=== PATIENT | male | born 1945 | race Caucasian/White ===

== ENCOUNTER → 2016-09-16 | Outpatient (CLI) | payer OTHER ==
[~2016-09-16] MED LIST: CARV6.252 PO; CIPR-255 PO; CLC100 PO; CLOP1TAB15 PO; CRAN1CAP15 PO; DTR5 PO; LISI-461 PO; MECL1TAB42 PO; OXYC7.5T62 PO
--- NOTE | 2016-09-16 13:13 | DIAGNOSTIC IMAGING REPORT ---
WHOLE-BODY NUCLEAR BONE SCAN CLINICAL HISTORY: Prostate cancer. COMPARISON STUDY: No priors. TECHNIQUE: Three hours following the IV administration of 27.5 mCi of technetium 99m MDP, whole body nuclear bone scan was performed in the anterior and posterior projections. FINDINGS: There is no abnormal osseous tracer deposition identified typical in appearance for bony metastatic disease. Typically degenerative uptake is identified in the shoulders and knees. Mild degenerative activity is noted in the lumbar spine. There is expected excreted activity within the left renal collecting system and bladder. No tracer is identified within the right renal collecting system. IMPRESSION: 1. There is no abnormal tracer deposition identified typical appearance for bony metastatic disease. 2. There is no excreted tracer identified in the right renal collecting system. Clinical correlation will be required. Electronically signed by: Ramirez West M.D. 09/16/2016 1:11 PM Dictated Date/Time: 09/16/2016 1:09 PM
== END | disposition home or self-care (01) ==
LOC: C.NUCL 09:14
PROVIDERS: ATTEND Urology
DX: C61 Malignant neoplasm of prostate (principal)

== ENCOUNTER → 2016-10-03 | Outpatient (CLI) | payer OTHER | END | disposition home or self-care (01) | LOC: C.LABSPEC 11:01 | PROVIDERS: ATTEND Urology | DX: R97.20 Elevated prostate specific antigen [PSA] (principal); N40.2 Nodular prostate without lower urinary tract symptoms; C61 Malignant neoplasm of prostate ==

== ENCOUNTER 2016-12-01 05:15 | Inpatient (IN) | payer OTHER ==
[2016-11-09 13:35] VITALS: BMI 26.0
--- NOTE | 2016-11-09 14:11 | PAT Medication Instructions ---
Service Date Nov 09, 2016. Current Home Medication List Carvedilol (Coreg), 1 TAB PO BID Clopidogrel (Plavix), 75 MG PO QAM Cranberry-Vitamin C-Vitamin E (Cranberry), 1 CAP PO QAM Lisinopril (Zestril), 1 TAB PO QAM Meclizine Hcl (Meclizine Hcl), 1 TAB PO TID PRN for VERTIGO Medication Instructions For Your Scheduled Surgery Clopidogrel (Plavix), 75 MG PO QAM (hold 5 days prior to surgery per surgeon and PCP instructions) Meclizine Hcl (Meclizine Hcl), 1 TAB PO TID PRN for VERTIGO (not taking currently) - Hold the following medications 2 weeks prior to surgery: Cranberry-Vitamin C-Vitamin E (Cranberry), 1 CAP PO QAM - Hold the following medications the morning of surgery: Lisinopril (Zestril), 1 TAB PO QAM - Take the following medications the morning of surgery with a sip of water: Carvedilol (Coreg), 1 TAB PO BID - Take the following medications as scheduled the night before surgery: Carvedilol (Coreg), 1 TAB PO BID If you have any questions please call us at [phone] or [phone] ( [place]) or [phone]
--- NOTE | 2016-11-09 15:06 | DIAGNOSTIC IMAGING REPORT ---
TWO VIEW CHEST CLINICAL HISTORY: Preoperative examination. FINDINGS: PA and lateral chest radiographs are obtained. No prior studies are available for comparison at the time of dictation. The cardiomediastinal silhouette is unremarkable. There is mild atherosclerotic calcification of the thoracic aorta. There is elevation of right hemidiaphragm and minimal bibasilar atelectasis. The lungs and pleural spaces are otherwise clear. There is no pneumothorax. The skeletal structures are osteopenic. The bony thorax appears intact. IMPRESSION: No active disease in the chest. Electronically signed by: Ramirez West M.D. 11/09/2016 3:05 PM Dictated Date/Time: 11/09/2016 3:04 PM
[2016-11-09 15:10] LABS: URINE APPEARANCE CLEAR (CLEAR); URINE BILIRUBIN NEG (NEG); URINE COLOR YELLOW; URINE EPITHELIAL CELL AUTO 0-5 /lpf (0-5); URINE NITRITE NEG (NEG); URINE PH 5.5 (4.5-7.5); UROBILINOGEN NEG (NEG)
[2016-11-09 15:12] LABS: BASO % 0.7 %; BASO ABS # 0.04 K/uL (0-0.2); COMPLETE YES; EOS % 2.7 %; IG% 0.2 %; LYMPH % 18.5 %; LYMPH ABS # 1.03 K/uL (1.2-3.4); MANUAL MICROSCOPIC REQUIRED? NO; MEAN CELL VOLUME 84.8 fL (80-100); MEAN CORPUSCULAR HEMOGLOBIN 29.2 pg (25-34); MEAN CORPUSCULAR HGB CONC 34.5 g/dl (32-36); MEAN PLATELET VOLUME 10.3 fL (7.4-10.4); MONO % 8.1 %; NEUT % 69.8 %; PLATELET COUNT 237 K/uL (130-400); RED BLOOD COUNT 5.54 M/uL (4.7-6.1); REVIEW REQ? NO; WHITE BLOOD COUNT 5.56 K/uL (4.8-10.8)
[2016-11-09 15:35] LABS: BUN/CREATININE RATIO 15.4 (10-20); CALCIUM 8.7 mg/dl (8.5-10.1); CREATININE 1.3 mg/dl (0.60-1.40); POTASSIUM 4.7 mmol/L (3.5-5.1)
[2016-12-01] VITALS (11 sets, daily range): BP systolic 114–166; BP diastolic 70–96; PULSE 75–111; TEMP 36.2–36.4; O2SAT 91–96; Ht 180.3 cm; Wt 86.5 kg
[~2016-12-01] VITALS: Ht 180.3 cm; Wt 86.5 kg
[~2016-12-01 05:15] MED LIST changes: -CIPR-255 PO; -CLC100 PO; -DTR5 PO; -OXYC7.5T62 PO
[2016-12-01] MEDS ORDERED: LACTATED RINGER'S 1000ML 1,000 ML IV SCH ×2 (06:00)
[2016-12-01] MEDS ORDERED: HEPARIN SOD 5000 UNIT/0.5 ML CARP SQ SCH (06:00)
[2016-12-01] MEDS ORDERED: CEFAZOLIN 2000 MG/60 ML D5W IV SCH (06:00)
[2016-12-01] MEDS ORDERED: METHYLENE BLUE 0.5% 10 ML VIAL ONE (06:48)
[2016-12-01] MEDS ORDERED: BUPIVACAINE 0.5 % 5 MG/1 ML MPF 30ML VIAL ONE (06:48)
[2016-12-01] MEDS ORDERED: NEOSTIGMINE METHYLSULFATE 5 MG/5 ML SYR ONE (06:53)
[2016-12-01] MEDS ORDERED: GLYCOPYRROLATE INJ 0.2 MG/ML VIAL ONE (06:53)
[2016-12-01] MEDS ORDERED: LIDOCAINE HCL 2% 2 ML VIAL (20MG/ML) ONE (06:53)
[2016-12-01] MEDS ORDERED: PROPOFOL IV EMULSION 10 MG/ML 20 ML VIAL IV ONE (06:53)
[2016-12-01] MEDS ORDERED: ONDANSETRON INJ 2 MG/ML 2 ML VIAL ONE (06:53)
[2016-12-01] MEDS ORDERED: ROCURONIUM BROMIDE 10 MG/ML 5 ML VIAL ONE (06:53)
[2016-12-01] MEDS ORDERED: DEXAMETHASONE SOD INJ 4 MG/ML VIAL ONE (06:53)
[2016-12-01] MEDS ORDERED: MIDAZOLAM HCL 1 MG/ML 2ML VIAL ONE (06:54)
[2016-12-01] MEDS ORDERED: FENTANYL CITRATE INJ 50 MCG/1 ML 2 ML VIAL ONE (06:54)
--- NOTE | 2016-12-01 06:54 | History & Physical Bridge Note ---
H&P Re-Evaluation Bridge Note: I have examined the patient, reviewed the History & Physical and in the interval since the performance of the History & Physical I have noted the following changes of clinical significance: No changes noted
[2016-12-01] MEDS ORDERED: LABETALOL HCL IV 5 MG/ML 20ML IV PRN (07:45)
[2016-12-01] MEDS ORDERED: ONDANSETRON INJ 2 MG/ML 2 ML VIAL IV PRN (07:45)
[2016-12-01] MEDS ORDERED: ATROPINE SULFATE 0.1 MG/ML 5ML SYR IV PRN (07:45)
[2016-12-01] MEDS ORDERED: HYDROmorphone INJ 2 MG/ML SYR/VIAL IV PRN (07:45)
[2016-12-01] MEDS ORDERED: HYDROmorphone INJ 2 MG/ML SYR/VIAL ONE (08:17)
[2016-12-01] MEDS ORDERED: OXYBUTYNIN CHLORIDE 5 MG TAB PO PRN (11:15)
[2016-12-01] MEDS ORDERED: MECLIZINE HCL 25 MG TAB PO PRN (11:15)
[2016-12-01] MEDS ORDERED: KETOROLAC TROMETHAMINE 15 MG/ML VIAL IV PRN (11:15)
--- NOTE | 2016-12-01 11:40 | [facility] Post Operative Brief Note ---
Immediate Operative Summary Operative Date Dec 01, 2016. Pre-Operative Diagnosis cT2b [place] 4+3 Prostate Cancer Post-Operative Diagnosis Same as preop Procedure(s) Performed Robot Assisted Laparoscopic Radical Retropubic Prostatectomy, Removal of Pelvic Lymph Nodes, Lysis of Adhesions, Robot Assist; Suprapubic Tube Placement Surgeon Dr. Som Gruber Rn Ante Partum Surgeon(s) Jeni Ortiz NP Estimated Blood Loss 150 ml Findings LLQ bowel adhesions lysed, large seminal vesical nodule distorting bladder neck and prostate anatomy, watertight anastomosis. Specimens Frozen- 1. Bladder Neck Margin-left room at 0850, lab called back at 0910 Permanent A. Left Pelvic Lymph Node B. Periprostatic Fat C. Bladder Neck Margin D. Right Pelvic Lymph Node has Clip E. Prosate and Seminal Vesicles Drains #10 PAO LLQ, 18 fr silicone lara, 10 cc, 16 fr Rutner SPT, 5 cc Anesthesia GAET + local Complication(s) None Disposition Recovery Room / PACU
[2016-12-01 11:59] LABS: HEMATOCRIT 43.7 % (42-52); MEAN CELL VOLUME 86.4 fL (80-100); MEAN CORPUSCULAR HEMOGLOBIN 30.4 pg (25-34); MEAN PLATELET VOLUME 9.9 fL (7.4-10.4); PLATELET COUNT 189 K/uL (130-400); RED BLOOD COUNT 5.06 M/uL (4.7-6.1); WHITE BLOOD COUNT 9.85 K/uL (4.8-10.8)
[2016-12-01 12:02] LABS: MEAN CORPUSCULAR HGB CONC 35.2 g/dl (32-36)
[2016-12-01] MEDS: HYDROmorphone INJ 1 MG/ML SYR IV PRN ×4 (12:24→12:39)
[2016-12-01 12:30] LABS: BUN/CREATININE RATIO 12.3 (10-20); CALCIUM 7.9 mg/dl (8.5-10.1); CREATININE 1.4 mg/dl (0.60-1.40); POTASSIUM 4.2 mmol/L (3.5-5.1)
--- NOTE | 2016-12-01 13:06 | Anesthesiology Progress Note ---
Anesthesia Post Op Note Date & Time Dec 01, 2016 at 13:06 Vital Signs Pain Intensity: 2 Vital Signs Past 12 Hours Date Time Temp Pulse Resp B/P Pulse Ox O2 Delivery O2 Flow Rate FiO2 12/01/16 12:52 36.4 95 15 166/89 93 Nasal Cannula 3 12/01/16 12:50 166/89 12/01/16 12:46 89 15 12/01/16 12:46 90 15 94 12/01/16 12:45 163/91 12/01/16 12:41 95 14 93 12/01/16 12:41 95 14 12/01/16 12:40 155/81 12/01/16 12:36 74 13 93 12/01/16 12:36 75 13 12/01/16 12:35 160/81 12/01/16 12:31 84 19 95 12/01/16 12:31 83 19 12/01/16 12:30 159/96 12/01/16 12:26 70 14 12/01/16 12:26 70 14 95 12/01/16 12:25 159/85 12/01/16 12:21 81 16 94 12/01/16 12:21 81 16 12/01/16 12:20 159/85 12/01/16 12:16 79 16 12/01/16 12:16 78 16 95 12/01/16 12:15 172/91 12/01/16 12:12 84 17 12/01/16 12:12 84 17 94 12/01/16 12:10 170/97 12/01/16 12:07 70 15 94 12/01/16 12:07 71 15 12/01/16 12:06 80 17 12/01/16 12:06 81 17 94 12/01/16 12:05 170/92 12/01/16 12:01 86 16 95 12/01/16 12:01 86 16 12/01/16 12:00 85 21 170/93 95 12/01/16 12:00 86 21 12/01/16 11:56 168/91 12/01/16 11:55 85 20 12/01/16 11:55 85 20 92 12/01/16 11:50 88 15 97 12/01/16 11:50 88 15 12/01/16 11:45 93 18 12/01/16 11:45 92 18 162/94 96 12/01/16 11:40 83 16 155/96 98 12/01/16 11:40 83 16 12/01/16 11:35 94 17 171/96 97 12/01/16 11:35 94 17 12/01/16 11:30 88 18 12/01/16 11:30 84 18 129/81 97 12/01/16 11:25 36.4 87 16 152/92 97 Mask 10 12/01/16 11:25 89 20 152/92 97 12/01/16 11:25 88 20 12/01/16 05:45 36.4 75 16 148/93 94 Room Air Notes Mental Status: alert / awake / arousable, participated in evaluation Pt Amnestic to Procedure: Yes Nausea / Vomiting: adequately controlled Pain: adequately controlled Airway Patency, RR, SpO2: stable & adequate BP & HR: stable & adequate Hydration State: stable & adequate Anesthetic Complications: no major complications apparent
--- NOTE | 2016-12-01 13:33 | OPERATIVE REPORT ---
DATE OF OPERATION: 12/01/2016 PREOPERATIVE DIAGNOSIS: Clinical T2b, [place] 4+3 right-sided prostate cancer. POSTOPERATIVE DIAGNOSES: Same, intraabdominal adhesions, seminal vesicle nodule. PROCEDURES: Robot-assisted laparoscopic lysis of adhesions, robot-assisted laparoscopic radical retropubic prostatectomy and bilateral pelvic lymph node dissection. SURGEON: Dr. Som Gruber. CLINICAL BIOCHEMIST: TANJA Pearl. ANESTHESIA: General anesthesia with endotracheal intubation plus local at port sites. ESTIMATED BLOOD LOSS: 150 mL. IV FLUIDS: 2 liters of crystalloid. SPECIMENS SENT TO PATHOLOGY: Bladder neck margin for frozen section positive for apparent benign prostate glands, no malignancy, periprostatic fat, bladder neck margin for permanent section, prostate plus seminal vesicles, left and right pelvic lymph node packets. DRAINS LEFT IN PLACE: Include an 18-[place] silicone Yao catheter to gravity drainage with 10 mL of sterile water in the balloon, #10 PAO drain in left lower quadrant and a 16-[place] Rutner suprapubic tube with 5 mL of sterile water in the balloon. COMPLICATIONS: None. FINDINGS: Large solid nodule of the seminal vesicle distorting the bladder neck anatomy, watertight anastomosis, periprostatic bladder neck inflammation. BRIEF HISTORY: Mr. Wise is a 71-year-old male who I have seen as an outpatient for history of an elevated PSA and abnormal digital rectal exam. Prostate biopsy demonstrated a [place] 4+3 adenocarcinoma on the side of his nodule. Please see H\T\P for further details. After discussion of risks and benefits of various forms of intervention, he has decided upon robotic prostatectomy to manage his disease. Wide dissection on the right hand side is planned. Intravenous antibiotics provided for coverage and subcutaneous heparin and SCDs used for DVT prophylaxis. PROCEDURE IN DETAIL: The patient was properly identified and brought to the operative suite after identification of appropriate consent on the chart. General anesthesia with endotracheal intubation was initiated and the patient was prepped and draped in standard fashion for this procedure. part time flexible clerk-out procedure was followed. All port sites were anesthetized with local prior to incision. Supraumbilical incision was made, approximately 12 mm in length and using a visual obturator, abdomen was directly entered using a laparoscope. Abdomen was insufflated to 15 mmHg and ports were placed for robotic fourth arm template. On the left hand side, adhesions between the bowel omentum and the anterior abdominal wall were appreciated. Using cold scissors, these were lysed until the pelvis was easily accessible. Two left-sided 7 mm robotic ports were placed, 1 right-sided 7 mm robotic port and a 5-12 mm family readiness support assistant port. The patient was placed in Trendelenburg and robot was brought in and docked prior to lysis of adhesions as noted above. The bladder was dropped down to the level of the pubic bone and prostate was defatted. A relative paucity of intraabdominal fat was appreciated. Over the course of the lateral bladder dissection, the left-sided external iliac vessels were noted to be well exposed with the lymph node packet essentially peeled off of the vessels. Clips and cautery were used as necessary to control small vessels of lymphatic and the lymph node packet on this side was removed from the abdomen and sent for pathologic analysis. Attention was turned to the pelvis where the prostate was defatted. Periprostatic fat was sent for separate pathologic analysis. Endopelvic fascia was sharply entered and dissection was carried down to the level of the apex of the prostate gland. A thickened dilated dorsal venous complex was noted. This was controlled using a 0 Vicryl suture on a CT1 needle in a [id number] fashion but due to its width, the suture was noted to have some slack. On the left hand side, as previously planned, a nerve-sparing dissection was carried out. On the right hand side, dissection was planned further from the level of the prostate. Bladder neck was placed on traction using a 30-degree down lens, the bladder neck was divided down to the level of the Yao catheter. At this level, a significant amount of bladder inflammation was appreciated down to the level of the Yao. Posterior bladder neck was noted to be inflamed and somewhat abnormal appearing in its nature. Due to concern over the possibility of cancerous involvement, frozen section from the posterior bladder lip was sent and felt to be positive for benign glands per the pathology report. Bladder was dropped in the midline and a cystic structure was encountered immediately posterior to the bladder neck. Rectum was insufflated and this was noted to demonstrate no bubbles and therefore not felt to be consistent with a GI injury. This was felt to possibly represent a prostatic cyst at first, based on previous CT scan imaging. Plane of dissection was taken lateral to the midline with the pedicles being controlled on the left hand side with cold Weck clips and scissors and on the right hand side with a vessel sealer. After the dissection was carried out, the [place] fascia was noted distally to the level of dissection. Seeing that the seminal vesicles and vas had not been encountered, attention was again turned to the structures of the bladder neck. On dissecting the cystic structure little further, it was appreciated that this was a seminal vesicle which had been folded underneath the bladder neck margin, distorting both its anatomy and the anatomy of the prostate gland, somewhat unusual in this location. This was dissected free and noted to be grossly dilated with a large solid nodule present within the seminal vesicles. This was felt to likely represent the patient's palpable area on previous digital rectal exam. Once the seminal vesicles were able to be identified and dissected free, the vas was noted to be tented underneath the seminal vesicles. These were divided and the posterior plane was identified in a more normal appearing fashion. Cold scissors were used to drop the rectum up to level of the apex of the prostate. Remaining nerve sparing dissection was carried out on the left hand side and the prostate was freed on the right hand side. Rectourethralis fibers were divided. Attention was turned to the dorsal vein which was divided with release of the previous controlling suture. After the urethra was skeletonized and the apex of the prostate defined, a [id number] suture was repeated into the dorsal venous complex with excellent hemostasis. Urethra was divided with an excellent urethral stump. Rectourethralis fibers were also divided and the prostate was removed from the pelvis to be placed within an EndoCatch bag for retrieval at the end of the case. Attention was turned to the pelvis for any small bleeding vessels which were controlled as necessary using judicious cautery. Otherwise, excellent hemostasis was appreciated. Rectum was insufflated under saline irrigation and noted to be free of injury. The bladder neck was carefully inspected per the previous positive margin and some excess tissue in the posterior aspect was dissected free. However, close inspection of the bladder neck did not identify any further residual prostate tissue at this level. The tissue removed was sent as a permanent bladder neck margin. Methylene blue had been provided. Ureteral orifices were noted to be well removed from the plane of dissection. Pelvic lymph node dissection was carried out on the right hand side using cautery and clips as necessary to control small lymphatics. This was labeled with a clip for identification after removal from the patient. The patient's obturator nerves were noted to be in close proximity to the external iliac vessels without significant redundant lymphatic tissue apparent in the obturator fossa. The majority of the dissection therefore consisted of the tissue overlying the external iliac vessels on both sides. No additional tissue was identified for resection on the left hand side after initial removal. Attention was then turned to the pelvis where again excellent hemostasis was appreciated. Using a circumferential running anastomosis, the bladder neck and urethra were brought together with a double armed V-Loc suture. Good mucosal coaptation was appreciated. Bladder neck had been relaxed previously to allow for visualization of the structures within the bladder and ensure lack of a median lobe but bladder neck reconstruction was not required due to the brawny nature of the tissue and a small bladder neck aperture. After completion of closure, the 18-[place] silicone catheter was visualized entering the bladder prior to completion of the anastomosis. Bladder was irrigated with greater than 120 mL and the anastomosis was noted to be watertight. The bladder was left distended and a small suprapubic incision was made. 16-[place] Rutner was passed via the lower abdominal wall and visualized entering the abdominal cavity. Bladder was stabilized and the Rutner was placed into the anterior dome of the bladder with return of pink tinged irrigant. Five mL of sterile water were placed in the balloon and this was appreciated to be in good location with free drainage. [place] were removed with correct needle and instrument count. The fourth arm was removed and a PAO drain was brought in via the fourth arm port. This was placed within the confines of the pelvis while avoiding placing it directly over the anastomosis. Robotic instruments were removed and camera was brought in via the family readiness support assistant port. String to the EndoCatch bag was brought out through the supraumbilical incision. Ports were removed and excess carbon dioxide gas was removed from the abdominal cavity. Supraumbilical port was enlarged sufficiently to allow for easy removal of the specimen. This was then closed with a running 0 Vicryl suture on a UR-5 needle. A 2-0 silk was used to secure the suprapubic tube and the PAO drain in place. Skin was closed using 4-0 Monocryl and Dermabond dressings. Anesthesia was reversed. The patient was transferred to recovery room in stable condition. FOLLOWUP CARE: The patient will be admitted to the floor for standard postoperative management. We will plan on removing the urethral Yao tomorrow, send the patient home with a suprapubic tube should this be functioning well. I attest to the content of the Intraoperative Record and any orders documented therein. Any exceptio ns are noted below.
[2016-12-01] MEDS: LACTATED RINGER'S 1000ML 1,000 ML IV SCH ×2 (14:23→20:44)
[2016-12-01 14:59] LABS: PROTHROMBIN TIME (PATIENT) 10.2 SECONDS (9.0-12.0)
[2016-12-01] MEDS: ONDANSETRON INJ 2 MG/ML 2 ML VIAL IV PRN (15:50)
[2016-12-01] MEDS: CEFAZOLIN IV 1,000 MG in DEXTROSE 5% 50ML 50 ML IV SCH (15:50)
[2016-12-01] MEDS: LISINOPRIL 10 MG TAB PO SCH (16:03)
[2016-12-01] MEDS: ACETAMINOPHEN 500 MG TAB PO SCH (18:00)
[2016-12-01] MEDS: CARVEDILOL 6.25 MG TAB PO SCH (20:44)
[2016-12-01] MEDS: DOCUSATE SODIUM 100 MG CAP PO SCH (20:45)
[2016-12-01] MEDS: HEPARIN SOD 5000 UNIT/0.5 ML CARP SQ SCH (20:47)
[2016-12-02] VITALS (7 sets, daily range): BP systolic 121–147; BP diastolic 72–80; PULSE 74–94; TEMP 36.3–36.8; O2SAT 92–94
[2016-12-02] MEDS: CEFAZOLIN IV 1,000 MG in DEXTROSE 5% 50ML 50 ML IV SCH ×2 (00:09→09:51)
[2016-12-02] MEDS: LACTATED RINGER'S 1000ML 1,000 ML IV SCH (05:28)
[2016-12-02] MEDS: ACETAMINOPHEN 500 MG TAB PO SCH ×3 (05:35→10:47)
[2016-12-02 07:33] LABS: BASO % 0.1 %; BASO ABS # 0.01 K/uL (0-0.2); COMPLETE YES; EOS % 0.1 %; HEMATOCRIT 39.5 % (42-52); IG% 0.3 %; LYMPH % 10.4 %; LYMPH ABS # 0.91 K/uL (1.2-3.4); MEAN CELL VOLUME 85.9 fL (80-100); MEAN CORPUSCULAR HEMOGLOBIN 29.8 pg (25-34); MEAN CORPUSCULAR HGB CONC 34.7 g/dl (32-36); MEAN PLATELET VOLUME 10.1 fL (7.4-10.4); MONO % 9.2 %; NEUT % 79.9 %; PLATELET COUNT 188 K/uL (130-400); WHITE BLOOD COUNT 8.77 K/uL (4.8-10.8)
--- NOTE | 2016-12-02 07:34 | Progress Note ---
Subjective Date of Service: Dec 02, 2016. Subjective Pt evaluation today including: conversation w/ patient, physical exam, chart review, lab review, review of inpatient medication list Pain: Lower abdominal, controlled PO Intake: Valeria clears, + appetite Voiding: lara catheter in place (SPT and lara draining well, urine clear) 71 yo male POD#1 s/p RALRP, BPLND. He was OOBTC last PM, valeria clears well. He notes some SP discomfort, valeria clears, no f/c/n/v. Minimal PAO output, urine clear , SPT > lara. Overall feeling improved from PM rounds yesterday. Review of Systems Constitutional: No chills, No fever Eyes: No worsening of vision ENT: No hearing loss Respiratory: No shortness of breath, No sputum Cardiac: No chest pain Abdomen: + pain (mild), No diarrhea, No nausea, No vomiting Male : + see HPI Neurologic: No memory loss, No paralysis Psychiatric: No depression symptoms Skin: No new/changing skin lesions Objective Vital Signs Date Time Temp Pulse Resp B/P Pulse Ox O2 Delivery O2 Flow Rate FiO2 12/02/16 04:00 36.4 89 18 136/77 93 Room Air 12/02/16 00:14 Room Air 12/01/16 23:31 36.3 92 18 114/70 91 Room Air 12/01/16 19:45 93 Nasal Cannula 3.0 12/01/16 19:41 36.4 111 18 147/89 93 Room Air 12/01/16 16:50 36.4 102 18 145/88 95 Room Air 12/01/16 16:07 Nasal Cannula 3.0 12/01/16 15:38 36.4 95 18 158/93 96 Nasal Cannula 2.0 12/01/16 14:38 86 16 164/93 95 12/01/16 14:11 Nasal Cannula 3.0 12/01/16 14:10 95 16 166/96 95 12/01/16 14:07 36.2 94 16 153/87 94 Nasal Cannula 3.0 12/01/16 14:04 94 Nasal Cannula 3.0 12/01/16 12:52 36.4 95 15 166/89 93 Nasal Cannula 3 12/01/16 12:50 166/89 12/01/16 12:46 89 15 12/01/16 12:46 90 15 94 12/01/16 12:45 163/91 12/01/16 12:41 95 14 93 12/01/16 12:41 95 14 12/01/16 12:40 155/81 12/01/16 12:36 74 13 93 12/01/16 12:36 75 13 12/01/16 12:35 160/81 12/01/16 12:31 84 19 95 12/01/16 12:31 83 19 12/01/16 12:30 159/96 12/01/16 12:26 70 14 12/01/16 12:26 70 14 95 12/01/16 12:25 159/85 12/01/16 12:21 81 16 94 12/01/16 12:21 81 16 12/01/16 12:20 159/85 12/01/16 12:16 79 16 12/01/16 12:16 78 16 95 12/01/16 12:15 172/91 12/01/16 12:12 84 17 12/01/16 12:12 84 17 94 12/01/16 12:10 170/97 12/01/16 12:07 70 15 94 12/01/16 12:07 71 15 12/01/16 12:06 80 17 12/01/16 12:06 81 17 94 12/01/16 12:05 170/92 12/01/16 12:01 86 16 95 12/01/16 12:01 86 16 12/01/16 12:00 85 21 170/93 95 12/01/16 12:00 86 21 12/01/16 11:56 168/91 12/01/16 11:55 85 20 12/01/16 11:55 85 20 92 12/01/16 11:50 88 15 97 12/01/16 11:50 88 15 12/01/16 11:45 93 18 12/01/16 11:45 92 18 162/94 96 12/01/16 11:40 83 16 155/96 98 12/01/16 11:40 83 16 12/01/16 11:35 94 17 171/96 97 12/01/16 11:35 94 17 12/01/16 11:30 88 18 12/01/16 11:30 84 18 129/81 97 12/01/16 11:25 36.4 87 16 152/92 97 Mask 10 12/01/16 11:25 89 20 152/92 97 12/01/16 11:25 88 20 Physical Exam General Appearance: WD/WN, no apparent distress ENT: hearing grossly normal Neck: supple, no adenopathy Respiratory/Chest: no respiratory distress, no accessory muscle use Cardiovascular: no JVD Abdomen: non tender, soft, + pertinent finding (nondistended, inc c/d/i) Extremities: non-tender Neurologic/Psychiatric: alert Skin: normal color Laboratory Results Last 24 Hours Test 12/01/16 11:52 12/01/16 14:35 12/02/16 07:12 White Blood Count 9.85 K/uL Red Blood Count 5.06 M/uL Hemoglobin 15.4 g/dL Hematocrit 43.7 % Mean Corpuscular Volume 86.4 fL Mean Corpuscular Hemoglobin 30.4 pg Mean Corpuscular Hemoglobin Concent 35.2 g/dl RDW Standard Deviation 41.2 fL RDW Coefficient of Variation 13.0 % Platelet Count 189 K/uL Mean Platelet Volume 9.9 fL Sodium Level 142 mmol/L Potassium Level 4.2 mmol/L Chloride Level 107 mmol/L Carbon Dioxide Level 28 mmol/L Anion Gap 7.0 mmol/L Blood Urea Nitrogen 17 mg/dl Creatinine 1.40 mg/dl Est Creatinine Clear Calc Drug Dose 51.5 ml/min Estimated GFR () 58.2 Estimated GFR (Non- 50.2 BUN/Creatinine Ratio 12.3 Random Glucose 166 mg/dl Calcium Level 7.9 mg/dl Prothrombin Time 10.2 SECONDS Prothromb Time International Ratio 1.0 Activated Partial Thromboplast Time 25.9 SECONDS Partial Thromboplastin Ratio 1.0 Assessment and Plan A/P 71 yo male POD#1 s/p RALRP, BPLND, doing well. Advance diet and activity today. Anticipate DC PAO and DC home later today. After ambulation patient will choose if he wishes to go home with lara or SPT, we will DC other catheter. Will recheck later today.
[2016-12-02] MEDS: OXYCODONE/ACETAMINOPHEN 7.5-325 TAB PO PRN ×2 (07:36→13:58)
[2016-12-02 08:06] LABS: CALCIUM 7.8 mg/dl (8.5-10.1); CREATININE 1.3 mg/dl (0.60-1.40); POTASSIUM 3.8 mmol/L (3.5-5.1)
[2016-12-02] MEDS ORDERED: CLC100 PO (09:27)
[2016-12-02] MEDS ORDERED: DTR5 PO (09:27)
[2016-12-02] MEDS ORDERED: CIPR-255 PO (09:27)
[2016-12-02] MEDS ORDERED: OXYC7.5T62 PO (09:27)
--- NOTE | 2016-12-02 09:29 | Discharge Instructions ---
Discharge Instructions Date of Service Dec 02, 2016. Admission Reason for Admission: Prostate Cancer Discharge Discharge Diagnosis / Problem: Prostate Cancer Discharge Goals Goal(s): Improve function, Prevent Disease Progression Activity Recommendations Activity Limitations: per Instructions/Follow-up section . Instructions / Follow-Up Instructions / Follow-Up 1. Do not lift >15lbs x 6 weeks. 2. No heavy exercise x 6 weeks. You may engage in light activity such as walking and stairs as tolerated. 3. No sexual intercourse until cleared by Dr. Gruber or Dr. Nathan. 4. Do not drive x [address] while taking narcotics. 5. Finish all of the antibiotic you have been prescribed. 6. Immediately call our office at [phone] if your catheter is removed for any reason. 7. Follow-up as scheduled. Please call our office at [phone] if you need to reschedule for any reason. . Current Hospital Diet Hospital Diet(s): Regular Diet Discharge Diet Recommended Diet: Regular Diet Procedures Procedures Performed: Robot Assisted Laparoscopic Radical Retropubic Prostatectomy, Removal of Pelvic Lymph Nodes, Lysis of Adhesions, Robot Assist; Suprapubic Tube Placement Pending Studies Studies pending at discharge: no Medical Emergencies . Who to Call and When: Medical Emergencies: If at any time you feel your situation is an emergency, please call 911 immediately. . Non-Emergent Contact Non-Emergency issues call your: Primary Care Provider, Urologist Call Non-Emergent contact if: temperature is above 101.5 . . "Provider Documentation" section prepared by Valarie Salinas. VTE Core Measure Inpt VTE Proph given/why not?: Unfractionated heparin SQ, SCD's [place] Drug Monitoring Program Search Results: patient reviewed within database
[2016-12-02] MEDS: DOCUSATE SODIUM 100 MG CAP PO SCH (09:51)
[2016-12-02] MEDS: LISINOPRIL 10 MG TAB PO SCH (09:52)
[2016-12-02] MEDS: CARVEDILOL 6.25 MG TAB PO SCH (09:52)
[2016-12-02] MEDS: HEPARIN SOD 5000 UNIT/0.5 ML CARP SQ SCH (09:55)
[2016-12-02] MEDS: ONDANSETRON INJ 2 MG/ML 2 ML VIAL IV PRN (10:43)
--- NOTE | 2016-12-13 13:41 | DISCHARGE SUMMARY ---
ADMITTING DIAGNOSIS: Prostate cancer. DISCHARGE DIAGNOSIS: Same. ADMITTING ATTENDING: Dr. Som Gruber. PROCEDURES OVER THE COURSE OF ADMISSION: Include a robotic prostatectomy with pelvic lymph node dissection on 12/01/2016. COMPLICATIONS: None. BRIEF HISTORY: Mr. Wise is a pleasant 71-year-old male who has been diagnosed with clinical T2b [place] 4+3 prostate cancer, for which he has chosen a radical prostatectomy to manage his disease with robot assistance. Please see H\T\P for further details. He is being admitted for this purpose. HOSPITAL COURSE: The patient was admitted after uncomplicated robotic prostatectomy on 12/01/2016. Please see operative report for further details. Suprapubic tube was left in place. The patient's postoperative course was uneventful with diet and activity being rapidly advanced. By postoperative day #1, the patient was ambulating in the hallways, tolerating a regular diet and comfortable on oral pain medication. He chose to have his SP tube remain in place and therefore his Yao was removed, as was his PAO drain. Please see progress notes for further details. DISCHARGE INSTRUCTIONS: Please see discharge instruction sheet and medication list for further details. The patient's postoperative appointment for his trial of void is confirmed. The patient is instructed to contact us should he note any fevers, chills, nausea, vomiting or other significant difficulties in the postoperative period. Postoperative prescriptions provided.
== END 2016-12-02 16:52 | disposition home or self-care (01) | DRG 707 ==
LOC: ENRESERVTM → ENRESERVDT → C.ACU 05:15 → C.MSW 11:21
PROVIDERS: ADMIT Urology; ATTEND Urology
PROC: 0DNS4ZZ (ICD-10-PCS; principal; 2016-12-01 07:30)
PROC: 8E0W4CZ Robotic Assisted Procedure of Trunk Region, Percutaneous Endoscopic Approach (ICD-10-PCS; principal; 2016-12-01 07:30)
PROC: 07BC4ZX Excision of Pelvis Lymphatic, Percutaneous Endoscopic Approach, Diagnostic (ICD-10-PCS; principal; 2016-12-01 07:30)
PROC: 0VT34ZZ Resection of Bilateral Seminal Vesicles, Percutaneous Endoscopic Approach (ICD-10-PCS; principal; 2016-12-01 07:30)
PROC: 0VT04ZZ Resection of Prostate, Percutaneous Endoscopic Approach (ICD-10-PCS; principal; 2016-12-01 07:30)
DX: C61 Malignant neoplasm of prostate (principal); Q60.0 Renal agenesis, unilateral; K66.0 Peritoneal adhesions (postprocedural) (postinfection); N50.89 Other specified disorders of the male genital organs; R11.11 Vomiting without nausea; T40.2X5A Adverse effect of other opioids, initial encounter; Y92.230 Patient room in hospital as the place of occurrence of the external cause; D45 Polycythemia vera; I10 Essential (primary) hypertension; M19.90 Unspecified osteoarthritis, unspecified site; Z87.891 Personal history of nicotine dependence; Z99.81 Dependence on supplemental oxygen; Z79.02 Long term (current) use of antithrombotics/antiplatelets; Z79.899 Other long term (current) drug therapy